=== PATIENT | female | born 1975 | race American Indian/Alaskan Native ===

== ENCOUNTER 2018-07-08 18:52 | Outpatient (CLI) | payer OTHER, MEDICAID ==
[2018-07-08 19:45] VITALS: BP 108/70
[2018-07-08] MEDS ORDERED: LACTATED RINGERS 1,000 ML IV ONE (21:01)
--- NOTE | 2018-07-08 21:52 | Ultrasound Report ---
FINAL REPORT PROCEDURE: US OB BPP WO NON-STRESS TECHNIQUE: Sonographic evaluation for breathing, movement, tone, and amniotic fluid volume was performed. CPT 55219 HISTORY: Leaking Fluid COMPARISON: No prior studies are available for comparison. FINDINGS: A single intrauterine gestation is identified with a heart rate of 153 beats per minute. Amniotic fluid volume: Normal-score 2. At least one vertical pocket > 2 cm or more in vertical axis. breathing: Normal-score 2. movement: Normal-score 2. tone: Normal. Score: 8 of 8. IMPRESSION: Normal biophysical profile.
--- NOTE | 2018-07-08 21:53 | Ultrasound Report ---
FINAL REPORT PROCEDURE: US OB LIMITED TECHNIQUE: Real-time limited sonographic examination was performed for evaluation of amniotic fluid index for each fetus with image documentation (1 or more fetuses). CPT 61387 HISTORY: Leaking Fluid COMPARISON: No prior studies are available for comparison. FINDINGS: A single intrauterine gestation is identified with a heart rate of 153 beats per minute. Amniotic fluid index is 18 centimeters. IMPRESSION: Amniotic fluid index is within normal limits.
== END 2018-07-08 22:30 | disposition home or self-care (01) ==
LOC: TRG 18:52
PROVIDERS: ATTEND Obstetrics & Gynecology
DX: O47.03 False labor before 37 completed weeks of gestation, third trimester (principal); Z3A.31 31 weeks gestation of pregnancy
CPT/HCPCS: 59025; 76815; 76819; 96360; J7120